=== PATIENT | male | born 1985 | race Caucasian/White ===

== ENCOUNTER → 2023-06-04 15:02 | Outpatient (CLI) | payer OTHER, SELFPAY ==
--- NOTE | ~2023-06-04 | XR_ITS ---
EXAMINATION: XR wrist LT min 3V DATE: 06/04/2023 15:32 INDICATION: Left wrist pain. TECHNIQUE: 4 views of left wrist were obtained. COMPARISON: None. FINDINGS: Bone alignment is normal. No fracture. There is moderate osteoarthritis of distal radioulna r joint. IMPRESSION: 1. Moderate osteoarthritis of distal radioulnar joint. Reviewed, dictated and finalized at location A.
== END ==
PROVIDERS: PCP Family Medicine; Visit Provider Family Medicine
DX: M19.032 Primary osteoarthritis, left wrist (principal)
CPT/HCPCS: 73110